=== PATIENT | female | born 1985 ===

== ENCOUNTER 2017-02-05 13:25 | Emergency (ER) | payer MEDICAID ==
[2017-02-05 13:29] VITALS: BP 167/97; PULSE 105; RESP 16; TEMP 99; O2SAT 99
[2017-02-05] MEDS ORDERED: Sodium Chloride 0.9% 1,000 ML IV STA (13:34)
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
== END 2017-02-05 14:59 | disposition home or self-care (01) ==
LOC: H.ER 13:25
DX: S09.90XA Unspecified injury of head, initial encounter (principal); S05.92XA Unspecified injury of left eye and orbit, initial encounter; Y04.2XXA Assault by strike against or bumped into by another person, initial encounter; Y93.9 Activity, unspecified